=== PATIENT | female | born 1955 | race Caucasian/White ===

== ENCOUNTER 2017-09-24 09:00 | Outpatient (CLI) | payer BC, SELFPAY ==
[2017-09-24] MEDS ORDERED: Sodium Chloride 0.9% 15 ML NEB ONE (17:21)
--- NOTE | 2017-09-24 19:21 | HP ---
DATE OF SERVICE: 09/24/2017 HISTORY OF PRESENT ILLNESS: Ms. Caridad Shaver is a 62-year-old who [facility] fo r evaluation of an ulceration of the left lateral lower leg. The patient states that she was scratch ed by a puppy 1-1/2 to 2 months ago. She states that for the wound of her left lateral lower leg, ray leo was seen on 3-[address] Westbrook. She states that over this period of time, she was prescr ibed 2 courses of p.o. antibiotics. The patient states that she has been caring for the ulceration o f her left lateral lower leg by cleansing the wound and performing dressing changes of Telfa for the ulceration. The patient was referred to the [facility] by Dr. Westbrook on 09/14/2017. PAST MEDICAL HISTORY: Negative for diabetes mellitus, coronary artery disease, or hypertension. PAST SURGICAL HISTORY: Negative. MEDICATIONS: 1. Aspirin 81 mg. 2. Vitamin D. 3. Fish oil. 4. Vitamin C. ALLERGIES: LATEX. SOCIAL HISTORY: Negative for current or previous tobacco or ETOH use. FAMILY HISTORY: Significant for diabetes mellitus. The patient states that her father and two siste rs were diagnosed with diabetes mellitus. PHYSICAL EXAMINATION: VITAL SIGNS: Temperature 97.7, pulse 77, respirations 19, blood pressure 139/70. GENERAL: A 62-year-old female, sitting on table in examination room, in no acute distress. HEENT: Normocephalic, atraumatic. NECK: No nuchal rigidity. CHEST: Clear to auscultation. CARDIOVASCULAR: Regular rate and rhythm. ABDOMEN: Soft. EXTREMITIES: An ulceration of the left lateral lower leg is present, which measures approximately 1. 5 x 0.6 cm. Granulation tissue is present within the wound margins. No purulent drainage is associa carol with the wound. Erythema of the skin surrounding the wound is present, which appears to be secon sravani to stasis changes as opposed to an infectious process. No maceration of the skin of the periwou nd is noted. Edema of the left foot and lower leg is present on exam today. NEUROLOGIC: Grossly nonfocal. ASSESSMENT AND PLAN: Chronic venous hypertension with ulcer and inflammation. The patient declines debridement of the ulceration today. She also declines application of a compression wrap. Therefore , dressing changes of Silverlon, 4 x 4s, followed by an Robinson bandage will be initiated today. These d ressing changes are to be performed on a daily basis after cleansing and irrigation. No antibiotics will be prescribed today based upon the appearance of the wound. As per the patient's request, Ms. Arely youngblood will be discharged from clinic today with followup on a p.r.n. basis.
== END 2017-09-24 09:01 | disposition home or self-care (01) ==
LOC: WCC 09:00
PROVIDERS: ATTEND Family Medicine
DX: S81.802D Unspecified open wound, left lower leg, subsequent encounter (principal)
CPT/HCPCS: 97602; 99203; A4218; G0463